=== PATIENT | male | born 1965 | race Caucasian/White ===

== ENCOUNTER 2017-01-08 02:41 | Emergency (ER) | payer OTHER ==
[~2017-01-08] VITALS: Ht 172.7 cm; Wt 74.2 kg
[2017-01-08] MEDS ORDERED: EMTR1TAB12 PO (02:49)
[2017-01-08] MEDS ORDERED: DIVA500T2 PO (02:49)
[2017-01-08] MEDS ORDERED: LISI40TA PO (02:49)
[2017-01-08] MEDS ORDERED: LOSARTIN (02:49)
[2017-01-08 04:44] VITALS: BP 132/87
== END 2017-01-08 04:50 | disposition home or self-care (01) ==
LOC: ED 03:47
DX: E86.0 Dehydration (principal); E16.2 Hypoglycemia, unspecified; I10 Essential (primary) hypertension
CPT/HCPCS: 99281